=== PATIENT | male | born 1970 | race Caucasian/White ===

== ENCOUNTER 2018-04-29 12:53 | Emergency (ER) | payer OTHER ==
[2018-04-29] MEDS ORDERED: ADENOSINE 6 MG/2 ML VIAL IVP ONE (13:05)
[2018-04-29] MEDS ORDERED: ADENOSINE 6 MG/2 ML VIAL ONE (13:13)
[2018-04-29] MEDS ORDERED: NS 500 ML IV ONE (13:16)
--- NOTE | 2018-04-29 13:20 | EDPHY ---
H & P Stated Complaint: tachycardia Time Seen by Provider: 04/29/18 13:09 HPI/ROS: CHIEF COMPLAINT: Rapid heart rate HISTORY OF PRESENT ILLNESS: 39-year-old male with history of SVT presents with rapid heart rate. Sudden onset of rapid heart rate at noon. Feels slightly anxious, but denies dizziness, shortness of breath or chest pain. History of SVT x2 in December 2017. Has not followed up with a music director yet. Previously took a beta-butch, but stopped because he did not like the way it made him feel. No other cardiopulmonary disease. REVIEW OF SYSTEMS: complete 10 point ROS reviewed and is negative except for the noted elements in the HPI - Personal History Current Tetanus Diphtheria and Acellular Pertussis (TDAP): Yes - Medical/Surgical History Hx Asthma: Yes Hx Diabetes: No Hx Cardiac Disease: Yes Hx Renal Disease: No Hx Cirrhosis: No Hx Alcoholism: No Hx HIV/AIDS: No Hx Splenectomy or Spleen Trauma: No Other PMH: ?svt in december - Social History Smoking Status: Never smoked Alcohol Use: Sober Drug Use: None Additional Social History: [place] - Physical Exam Exam: General Appearance: Alert, pleasant Eyes: Pupils equal and round, no conjunctival pallor or injection ENT, Mouth: Mucous membranes moist Neck: Normal inspection Respiratory: Lungs are clear to auscultation Cardiovascular: Regular tachycardia, no murmur Gastrointestinal: Abdomen is soft and nontender Neurological: A&O, nonfocal exam Skin: Warm and dry, no rash Extremities: Nontender, no pedal edema Psychiatric: Mood and affect normal Constitutional: Initial Vital Signs Temperature (C) 36.7 C 04/29/18 12:57 Heart Rate 184 H 04/29/18 12:57 Respiratory Rate 20 04/29/18 12:57 Blood Pressure 129/109 H 04/29/18 12:57 O2 Sat (%) 99 04/29/18 12:57 O2 Delivery Mode Room Air Allergies/Adverse Reactions: No Known Allergies Allergy (Unverified 04/29/18 12:57) Home Medications: Medication Instructions Recorded Albuterol 04/29/18 Flovent 110 MCG Hfa MDI (*) 04/29/18 Medical Decision Making - Diagnostics EKG Interpretation: EKG interpreted by me reveals SVT, rate 175, diffuse ST segment depression, likely secondary to tachycardia. Interpretation: Abnormal EKG Repeat EKG reveals normal sinus rhythm, rate 80, no ST or T segment changes. Interpretation: Normal EKG ED Course/Re-evaluation: This patient presents in SVT. Adenosine 6 mg IV given. Patient converted to normal sinus rhythm. EKG after cardioversion reveals normal sinus rhythm. IV normal saline 1 L given. teletypesetter monitor revealed normal sinus rhythm throughout the remainder of his emergency department stay. He will follow up with Cardiology as an outpatient. Warning signs discussed. I spent a total of 25 minutes of critical care time in obtaining history, performing a physical exam, bedside monitoring of interventions, collecting and interpreting tests and discussion with consultants but not including time spent performing procedures. Differential Diagnosis: Differential diagnosis includes though is not limited to atrial fibrillation, atrial flutter, ventricular dysrhythmia, hypotension. - Data Points Laboratory Results: Laboratory Results 04/29/18 13:13 04/29/18 13:13 04/29/18 04/29/18 13:13 13:13 WBC 11.43 10^3/uL H 10^3/uL (3.80-9.50) RBC 5.61 10^6/uL 10^6/uL (4.40-6.38) Hgb 17.2 g/dL g/dL (13.7-17.5) Hct 50.9 % % (40.0-51.0) MCV 90.7 fL fL (81.5-99.8) MCH 30.7 pg pg (27.9-34.1) MCHC 33.8 g/dL g/dL (32.4-36.7) RDW 12.2 % % (11.5-15.2) Plt Count 287 10^3/uL 10^3/uL (150-400) MPV 10.2 fL fL (8.7-11.7) Neut % (Auto) 69.4 % % (39.3-74.2) Lymph % (Auto) 20.9 % % (15.0-45.0) Dickinson % (Auto) 7.0 % % (4.5-13.0) Eos % (Auto) 1.7 % % (0.6-7.6) Baso % (Auto) 0.7 % % (0.3-1.7) Nucleat RBC Rel Count 0.0 % % (0.0-0.2) Absolute Neuts (auto) 7.93 10^3/uL H 10^3/uL (1.70-6.50) Absolute Lymphs (auto) 2.39 10^3/uL 10^3/uL (1.00-3.00) Absolute Monos (auto) 0.80 10^3/uL 10^3/uL (0.30-0.80) Absolute Eos (auto) 0.19 10^3/uL 10^3/uL (0.03-0.40) Absolute Basos (auto) 0.08 10^3/uL 10^3/uL (0.02-0.10) Absolute Nucleated RBC 0.00 10^3/uL 10^3/uL (0-0.01) Immature Gran % 0.3 % % (0.0-1.1) Immature Gran # 0.04 10^3/uL 10^3/uL (0.00-0.10) Sodium 140 mEq/L mEq/L (135-145) Potassium 4.3 mEq/L mEq/L (3.3-5.0) Chloride 103 mEq/L mEq/L (97-110) Carbon Dioxide 28 mEq/l mEq/l (22-31) Anion Gap 9 mEq/L mEq/L (6-14) BUN 18 mg/dL mg/dL (7-23) Creatinine 1.0 mg/dL mg/dL (0.7-1.3) Estimated GFR > 60 Glucose 107 mg/dL H mg/dL (70-100) Calcium 9.2 mg/dL mg/dL (8.5-10.4) TSH 2.300 uIU/mL uIU/mL (0.465-4.680) Medications Given: Discontinued Medications Adenosine (Adenosine) 6 mg IVP EDNOW ONE Stop: 04/29/18 13:06 Last Admin: 04/29/18 13:05 Dose: 6 mg Sodium Chloride (Ns) 500 mls @ 1,000 mls/hr IV EDNOW ONE PRN Reason: Protocol Stop: 04/29/18 13:45 Last Admin: 04/29/18 13:00 Dose: 500 mls Departure - Departure Disposition: Home, Routine, Self-Care Clinical Impression: Supraventricular tachycardia Condition: Good Instructions: Supraventricular Tachycardia (ED) Additional Instructions: Call to make an appointment with a music director when you arrive home. Return for recurrent symptoms or any concerns. Referrals: Peña Herrera MD [Medical Doctor] - As per Instructions
[2018-04-29 13:36] LABS: PLATELET COUNT 287 10^3/uL (150-400)
[2018-04-29 14:07] VITALS: BP 118/88
--- NOTE | 2018-04-29 18:42 | CPEKG ---
Test Reason : OPEN Blood Pressure : / mmHG Vent. Rate : 080 BPM Atrial Rate : 079 BPM P-R Int : 178 ms QRS Dur : 097 ms QT Int : 369 ms P-R-T Axes : 068 046 062 degrees QTc Int : 426 ms Sinus rhythm Confirmed by Mae Pastor ([id number]) on 04/29/2018 6:41:21 PM Referred By: Confirmed By:Mae Pastor
--- NOTE | 2018-04-30 13:09 | CPEKG ---
Test Reason : OPEN Blood Pressure : / mmHG Vent. Rate : 175 BPM Atrial Rate : 000 BPM P-R Int : 118 ms QRS Dur : 080 ms QT Int : 271 ms P-R-T Axes : 000 040 050 degrees QTc Int : [address] depression, probably rate related Confirmed by Dominik Altman ([id number]) on 04/30/2018 1:08:49 PM Referred By: Confirmed By:Dominik Altman
== END 2018-04-29 14:13 | disposition home or self-care (01) ==
DX: I47.1 Supraventricular tachycardia (principal); E86.9 Volume depletion, unspecified
CPT/HCPCS: 96374; J0153